=== PATIENT | female | born 1970 | race Caucasian/White ===

== ENCOUNTER 2017-10-20 19:36 | Inpatient (IN) | payer OTHER ==
[~2017-10-20] VITALS: Ht 165.1 cm; Wt 119.9 kg
[~2017-10-20 19:36] MED LIST: OMEP20ER PO
[2017-10-20 20:15] LABS: BASOPHILS ABSOLUTE AUTO 0.06 K/mm3 (0.00-0.23); BASOPHILS PERCENT AUTO 1 % (0-2); EOSINOPHILS ABSOLUTE AUTO 0.04 K/mm3 (0.00-0.68); EOSINOPHILS PERCENT AUTO 0 % (0-6); Hemoglobin 14.5 g/dL (11.5-16.0); IMMATURE GRAN ABSOLUTE AUTO 0.04 K/mm3 (0.00-0.10); IMMATURE GRAN PERCENT AUTO 0 % (0-1); LYMPHOCYTES ABSOLUTE AUTO 2.58 K/mm3 (0.84-5.20); LYMPHOCYTES PERCENT AUTO 28 % (21-46); MONOCYTES PERCENT AUTO 7 % (4-13); Mean Corpuscular HGB 30.3 pg (26.0-34.0); Mean Corpuscular HGB Conc 34.5 g/dL (31.5-36.5); Mean Corpuscular Volume 88 fL (80-100); Mean Platelet Volume 12.6 fL (9.1-12.4); NEUTROPHILS ABSOLUTE AUTO 5.77 K/mm3 (1.96-9.15); NEUTROPHILS PERCENT AUTO 64 % (41-73); Platelet Count 146 K/mm3 (150-400); RDW Coefficient Variation 12.8 % (11.7-14.2); Red Blood Cell Count 4.79 M/mm3 (3.80-5.20); White Blood Cell Count 9.09 K/mm3 (4.00-11.30)
[2017-10-20 20:33] LABS: Alanine Aminotransfer (ALT/SGP 131 U/L (12-78); Albumin, Blood 3.5 g/dL (3.4-5.0); Albumin/Globulin Ratio 0.9 (0.8-1.8); Alk Phos 273 U/L (50-136); Anion Gap 4 mmol/L (6-16); Aspartate Aminotrans (AST/SGOT 97 U/L (12-37); Blood Urea Nitrogen 8 mg/dL (8-24); CO2, Blood 29 mmol/L (21-32); Calcium, Blood 8.5 mg/dL (8.5-10.1); Chloride, Blood 105 mmol/L (98-108); Creatinine, Blood 0.67 mg/dL (0.40-1.00); Globulin, Blood 4.1 g/dL (2.2-4.0); Glomerular Filtration Rate >60 (60-); Glucose, Blood 180 mg/dL (70-99); Potassium, Blood 3.7 mmol/L (3.5-5.5); Sodium, Blood 138 mmol/L (136-145); Total Protein, Blood 7.6 g/dL (6.4-8.2)
[2017-10-21 00:13] LABS: Source, Urine Clean Catch
[2017-10-21 00:14] LABS: Bilirubin, Urine Neg (Neg); Blood, Urine Neg (Neg); Glucose Qualitative, Urine Neg (Neg); Ketones, Urine 2+ (Neg); Leukocyte Esterase, Urine Neg (Neg); Nitrite, Urine Neg (Neg); Protein, Urine 1+ (Neg); Specific Gravity, Urine 1.015 (1.003-1.022); Urobilinogen, Urine 2+ (Normal)
[2017-10-21 00:21] LABS: Appearance, Urine Hazy (Clear); Color, Urine Amber (P-Yellow)
[2017-10-21 00:22] LABS: Amorphous Mod (0-Heavy); Bacteria Few /hpf; Mucus Light (0-Heavy); Red Blood Cells, Urine Not Seen /hpf (0-2); Squamous Epithelial Cells Mod /hpf (Few); White Blood Cells, Urine Not Seen /hpf (0-5)
[2017-10-21] MEDS ORDERED: Milk Of Ma400 MG/5 M PO (01:12)
[2017-10-21] MEDS ORDERED: CITRATE OF MAG296 ML PO (01:14)
[2017-10-21] MEDS ORDERED: DOCU100 PO (01:16)
[2017-10-21 05:16] LABS: BASOPHILS ABSOLUTE AUTO 0.04 K/mm3 (0.00-0.23); BASOPHILS PERCENT AUTO 1 % (0-2); EOSINOPHILS ABSOLUTE AUTO 0.01 K/mm3 (0.00-0.68); EOSINOPHILS PERCENT AUTO 0 % (0-6); Hematocrit 40.1 % (33.0-51.0); Hemoglobin 13.6 g/dL (11.5-16.0); Mean Corpuscular HGB 30.2 pg (26.0-34.0); Mean Corpuscular HGB Conc 33.9 g/dL (31.5-36.5); Mean Corpuscular Volume 89 fL (80-100); Mean Platelet Volume 11.9 fL (9.1-12.4); Platelet Count 118 K/mm3 (150-400); RDW Coefficient Variation 12.9 % (11.7-14.2); RDW Standard Deviation 41.7 fL (35.1-46.3); Red Blood Cell Count 4.51 M/mm3 (3.80-5.20); White Blood Cell Count 8.17 K/mm3 (4.00-11.30)
[2017-10-21 05:27] LABS: IMMATURE GRAN ABSOLUTE AUTO 0.05 K/mm3 (0.00-0.10); IMMATURE GRAN PERCENT AUTO 1 % (0-1); LYMPHOCYTES PERCENT AUTO 28 % (21-46); MONOCYTES ABSOLUTE AUTO 0.63 K/mm3 (0.16-1.47); MONOCYTES PERCENT AUTO 8 % (4-13); NEUTROPHILS ABSOLUTE AUTO 5.14 K/mm3 (1.96-9.15); NEUTROPHILS PERCENT AUTO 63 % (41-73)
[2017-10-21 05:42] LABS: Alanine Aminotransfer (ALT/SGP 106 U/L (12-78); Albumin/Globulin Ratio 0.8 (0.8-1.8); Alk Phos 223 U/L (50-136); Anion Gap 8 mmol/L (6-16); Aspartate Aminotrans (AST/SGOT 54 U/L (12-37); Bilirubin, Total 0.8 mg/dL (0.1-1.0); Blood Urea Nitrogen 7 mg/dL (8-24); Bun/Creatinine Ratio 10.7 (12.0-20.0); CO2, Blood 31 mmol/L (21-32); Calcium, Blood 8.2 mg/dL (8.5-10.1); Chloride, Blood 103 mmol/L (98-108); Creatinine, Blood 0.66 mg/dL (0.40-1.00); Globulin, Blood 3.9 g/dL (2.2-4.0); Glomerular Filtration Rate >60 (60-); Glucose, Blood 151 mg/dL (70-99); Potassium, Blood 3.5 mmol/L (3.5-5.5); Sodium, Blood 142 mmol/L (136-145); Total Protein, Blood 6.9 g/dL (6.4-8.2)
[2017-10-22 14:50] LABS: Alanine Aminotransfer (ALT/SGP 67 U/L (12-78); Albumin, Blood 2.9 g/dL (3.4-5.0); Albumin/Globulin Ratio 0.8 (0.8-1.8); Alk Phos 193 U/L (50-136); Anion Gap 6 mmol/L (6-16); Aspartate Aminotrans (AST/SGOT 35 U/L (12-37); Bilirubin, Total 0.7 mg/dL (0.1-1.0); Blood Urea Nitrogen 15 mg/dL (8-24); CO2, Blood 30 mmol/L (21-32); Chloride, Blood 105 mmol/L (98-108); Creatinine, Blood 0.75 mg/dL (0.40-1.00); Globulin, Blood 3.7 g/dL (2.2-4.0); Glomerular Filtration Rate >60 (60-); Glucose, Blood 141 mg/dL (70-99); Sodium, Blood 141 mmol/L (136-145); Total Protein, Blood 6.6 g/dL (6.4-8.2)
== END 2017-10-23 22:14 | disposition short-term general hospital (02) | DRG 395 ==
LOC: ER 19:36 → MEDS 10-21 00:21
PROVIDERS: Emergency Medicine; Internal Medicine; Internal Medicine Gastroenterology; Physician Assistant
PROC: 0DJDXZZ Inspection of Lower Intestinal Tract, External Approach (ICD-10-PCS; principal; 2017-10-23 07:30)
DX: K63.89 Other specified diseases of intestine (principal); K59.00 Constipation, unspecified; E86.0 Dehydration; R59.1 Generalized enlarged lymph nodes; K56.609 Unspecified intestinal obstruction, unspecified as to partial versus complete obstruction; Z53.8 Procedure and treatment not carried out for other reasons
CPT/HCPCS: 36415; 36416; 74176; 74177; 80053; 81001; 82947; 83605; 83690; 85025; 93005; 93010; 96361; 96374; 96375; 99285; J0360; J1170; J1650; J2250; J2405; J3010; J7030; J7042; J7120; Q9967

== ENCOUNTER 2023-01-07 03:43 | Emergency (ER) | payer OTHER ==
[~2023-01-07] VITALS: Ht 165.1 cm; Wt 102.1 kg
[~2023-01-07 03:43] MED LIST changes: +CITRATE OF MAG296 ML PO; +DOCU100 PO; +Milk Of Ma400 MG/5 M PO
[2023-01-07 04:05] LABS: Source, Urine Clean Catch
[2023-01-07 04:08] LABS: Appearance, Urine Hazy (Clear); Bilirubin, Urine Neg (Neg); Blood, Urine 4+ (Neg); Color, Urine Yellow (P-Yellow); Glucose Qualitative, Urine 4+ (Neg); Ketones, Urine 2+ (Neg); Leukocyte Esterase, Urine 2+ (Neg); Nitrite, Urine Neg (Neg); Protein, Urine 2+ (Neg); Urobilinogen, Urine NORM (Normal)
[2023-01-07 04:18] LABS: Bacteria Mod /hpf; Squamous Epithelial Cells Not Seen /hpf (Few); White Blood Cells, Urine 25-50 /hpf (0-5)
[2023-01-07] MEDS ORDERED: SULTRIDS PO (05:34)
[2023-01-07 06:18] VITALS: BP 152/96
== END 2023-01-07 06:03 | disposition home or self-care (01) ==
LOC: ER 03:43
PROVIDERS: Student in an Organized Health Care Education/Training Program
DX: N39.0 Urinary tract infection, site not specified (principal)
CPT/HCPCS: 81001; 87077; 87086; 87147; 87186; 99283; A9270

== ENCOUNTER → 2023-04-15 | Outpatient (CLI) | payer OTHER ==
[~2023-04-15] MED LIST changes: +SULTRIDS PO
[2023-04-15 08:02] LABS: Source, Urine Clean Catch
[2023-04-15 13:43] LABS: Appearance, Urine Cloudy (Clear); Bilirubin, Urine Neg (Neg); Blood, Urine 2+ (Neg); Color, Urine Yellow (P-Yellow); Glucose Qualitative, Urine 4+ (Neg); Ketones, Urine Neg (Neg); Leukocyte Esterase, Urine 2+ (Neg); Nitrite, Urine Neg (Neg); Protein, Urine 2+ (Neg); Specific Gravity, Urine 1.025 (1.003-1.022); Urobilinogen, Urine NORM (Normal)
[2023-04-15 14:01] LABS: Microalb/Creat Ratio UR, Rand 20.034 mg/g (0.000-30.000); Microalbumin, Random Urine 58.9 mg/L (0.000-20.000)
[2023-04-15 16:02] LABS: Amorphous Light (0-Heavy); Bacteria Many /hpf; Squamous Epithelial Cells Few /hpf (Few); Yeast/Fungi Urine Rare /hpf
== END ==
LOC: LAB 07:15 → LAB SHORT 07:15
PROVIDERS: Family Medicine
DX: N39.0 Urinary tract infection, site not specified (principal); E11.9 Type 2 diabetes mellitus without complications
CPT/HCPCS: 81001; 82043; 82570; 87077; 87086; 87186

== ENCOUNTER 2023-06-14 18:43 | Inpatient (IN) | payer OTHER ==
[2023-06-14] MEDS ORDERED: BUPR75 PO (19:21)
[2023-06-14] MEDS ORDERED: ATOR10 PO (19:22)
[2023-06-14] MEDS ORDERED: Lisinopril2.5 MG PO (19:23)
[2023-06-14 19:56] LABS: BASOPHILS ABSOLUTE AUTO 0.07 K/mm3 (0.00-0.23); BASOPHILS PERCENT AUTO 1 % (0-2); EOSINOPHILS ABSOLUTE AUTO 0.39 K/mm3 (0.00-0.68); EOSINOPHILS PERCENT AUTO 5 % (0-6); Hematocrit 44.6 % (33.0-51.0); Hemoglobin 15.4 g/dL (11.5-16.0); IMMATURE GRAN ABSOLUTE AUTO 0.04 K/mm3 (0.00-0.10); IMMATURE GRAN PERCENT AUTO 1 % (0-1); LYMPHOCYTES PERCENT AUTO 25 % (21-46); MONOCYTES ABSOLUTE AUTO 0.52 K/mm3 (0.16-1.47); MONOCYTES PERCENT AUTO 6 % (4-13); Mean Corpuscular HGB 29.4 pg (26.0-34.0); Mean Corpuscular HGB Conc 34.5 g/dL (31.5-36.5); Mean Corpuscular Volume 85 fL (80-100); Mean Platelet Volume 12.8 fL (9.1-12.4); NEUTROPHILS ABSOLUTE AUTO 5.21 K/mm3 (1.96-9.15); NEUTROPHILS PERCENT AUTO 63 % (41-73); Platelet Count 198 K/mm3 (150-400); RDW Coefficient Variation 12.5 % (11.7-14.2); RDW Standard Deviation 38.5 fL (35.1-46.3); Red Blood Cell Count 5.23 M/mm3 (3.80-5.20); White Blood Cell Count 8.33 K/mm3 (4.00-11.30)
[2023-06-14 20:08] LABS: Albumin, Blood 3.1 g/dL (3.4-5.0); Albumin/Globulin Ratio 0.9 (0.8-1.8); Bilirubin, Total 0.5 mg/dL (0.1-1.0); Bun/Creatinine Ratio 14.1 (12.0-20.0); Calcium, Blood 8.8 mg/dL (8.5-10.1); Creatinine, Blood 0.78 mg/dL (0.40-1.00); Globulin, Blood 3.6 g/dL (2.2-4.0); Potassium, Blood 3.8 mmol/L (3.5-5.5); Total Protein, Blood 6.7 g/dL (6.4-8.2)
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
[2023-06-15 00:17] VITALS: BP 155/84
--- NOTE | 2023-06-15 01:40 | NUR ---
CBG PT CBG IN ED 443, TAKEN ONCE ARRIVED TO MEDDICAL FLOOR AND IS CURRENTLY AT 303. PT HAS A DIAGNOSIS OF DM. HOWEVER SHE WAS TO BE TAKING METFORMIN AND GLIPIZIDE AND STATES SHE DOES NOT. PT DOES NOT WANT INSULIN AT THIS TIME. NOTIFIED BASE CLOTH INSPECTOR.
[2023-06-15 04:06] VITALS: BP 128/81
--- NOTE | 2023-06-15 04:24 | NUR ---
TELEMETRY PT HAD AN 11 BEAT RUN OF VTACH. ASSESSED PT WHO WAS SLEEPING WITH SYMPTOMS. TELE UPLOADING STRIP TO CHART. NOTIFIED CHARGE. CURRENTLY SR @ 93. WILL CONTINUE TO MONITOR.
--- NOTE | 2023-06-15 05:35 | NUR ---
SHIFT SUMMARY PT A&O X4, CALM AND COOPERATIVE WITH CARE. PT EXPERIENCING LEFT SIDED WEAKNESS ESPECIALLY IN THE LEGS. ALSO DESCRIBES NUMBNESS AND TINGLING. CBG 317 @ 0400, MEDICATED PER ORDER. PT CURRENTLY HAS A PUREWICK IN PLACE DRAINING DARK COLORED URINE. PT/OT ORDERED. TELEMETRY: SR @ 93. CALL LIGHT WITHIN REACH WITH BED IN LOWEST POSITION. CALLS APPROPRIATELY.
[2023-06-15 07:20] VITALS: BP 166/97
[2023-06-15 15:18] VITALS: BP 165/95
--- NOTE | 2023-06-15 17:01 | NUR ---
SHIFT SUMMARY PT WITH S.O. AT BEDSIDE MOST OF THE DAY. HAD MRI COMPLETED THIS AFTERNOON. ASSISTED UP TO BSC FOR BM USING GAIT BELT AND FWW. HAVING TROUBLE PICKING UP HER L LEG WITH MOVMENT BUT HAS EQUAL STRENGTH AND ABLE TO HOLD HERSELF UP WITH BOTH LEGS. USING A PUREWICK DUE TO URINARY URGENCY.
[2023-06-15 20:39] VITALS: BP 168/81
--- NOTE | 2023-06-16 04:41 | NUR ---
Shift Summary Pt experiencing L leg weakness and tingling in her hands. No other deficits noted, strength appears equal in her arms/hands and both eyes are PERRLA. CBG was 337 at 2035, medicated per EMAR sliding scale. Head MRI completed yesterday, pt waiting to hear results from MD. Bernard in place draining tea colored urine. Pt remained in bed t/o the shift. No c/o pain or nausea. Pt hypertensive today around 167/95, spoke to hospitalist who gave no new orders because permissive hypertension may be desirable. Pt AOx4 and slept well through most of the night.
[2023-06-16 05:51] VITALS: BP 138/84
[2023-06-16 05:59] LABS: BASOPHILS ABSOLUTE AUTO 0.05 K/mm3 (0.00-0.23); BASOPHILS PERCENT AUTO 1 % (0-2); EOSINOPHILS ABSOLUTE AUTO 0.24 K/mm3 (0.00-0.68); EOSINOPHILS PERCENT AUTO 3 % (0-6); Hematocrit 43.8 % (33.0-51.0); IMMATURE GRAN ABSOLUTE AUTO 0.03 K/mm3 (0.00-0.10); IMMATURE GRAN PERCENT AUTO 0 % (0-1); LYMPHOCYTES ABSOLUTE AUTO 1.77 K/mm3 (0.84-5.20); LYMPHOCYTES PERCENT AUTO 22 % (21-46); MONOCYTES ABSOLUTE AUTO 0.55 K/mm3 (0.16-1.47); MONOCYTES PERCENT AUTO 7 % (4-13); Mean Corpuscular HGB 29.1 pg (26.0-34.0); Mean Corpuscular HGB Conc 34.2 g/dL (31.5-36.5); Mean Corpuscular Volume 85 fL (80-100); Mean Platelet Volume 12.2 fL (9.1-12.4); NEUTROPHILS ABSOLUTE AUTO 5.58 K/mm3 (1.96-9.15); NEUTROPHILS PERCENT AUTO 68 % (41-73); Platelet Count 177 K/mm3 (150-400); RDW Coefficient Variation 12.4 % (11.7-14.2); Red Blood Cell Count 5.15 M/mm3 (3.80-5.20); White Blood Cell Count 8.22 K/mm3 (4.00-11.30)
[2023-06-16 06:15] LABS: Albumin, Blood 2.8 g/dL (3.4-5.0); Anion Gap 3 mmol/L (6-16); Blood Urea Nitrogen 10 mg/dL (8-24); CO2, Blood 29 mmol/L (21-32); Calcium, Blood 8.5 mg/dL (8.5-10.1); Chloride, Blood 108 mmol/L (98-108); Creatinine, Blood 0.56 mg/dL (0.40-1.00); Glomerular Filtration Rate 108 (60-); Glucose, Blood 262 mg/dL (70-99); Phosphorus, Blood 2.9 mg/dL (2.5-4.9); Potassium, Blood 3.6 mmol/L (3.5-5.5); Sodium, Blood 140 mmol/L (136-145)
[2023-06-16 07:58] VITALS: BP 159/89
[2023-06-16 15:37] VITALS: BP 146/92
[2023-06-16] MEDS ORDERED: ASPI81CH PO (18:37)
[2023-06-16] MEDS ORDERED: CLOP75 PO (18:37)
--- NOTE | 2023-06-16 18:45 | NUR ---
SHIFT SUMMARY PT UP FOR MEALS. USING A FWW AND GAIT BELT ABLE TO WALK WITH CUES TO PUT HER FOOT FORWARD WHEN WALKING HEEL TOE. WITH CONCENTRATION SHE REMEMBERS. AGREEABLE WITH CARE GIVEN AND ENJOYS BEING UP MOVING AROUND WITH HELP. S.O. WITH PT MOST OF THE DAY. REMINDED PT SHE IS TO CALL FOR HELP AND NOT GET UP BY HERSELF. SPOKE WITH DR. LEE ABOUT IMAGING RESULTS BEING IN AND DISCHARGE ORDERS HAVE BEEN PLACED.
== END 2023-06-16 20:00 | disposition home or self-care (01) | DRG 65 ==
LOC: ER 18:43 → MEDS 18:44
PROVIDERS: Emergency Medicine; Family Medicine; ADMIT Internal Medicine
DX: I63.81 Other cerebral infarction due to occlusion or stenosis of small artery (principal); G81.94 Hemiplegia, unspecified affecting left nondominant side; N39.0 Urinary tract infection, site not specified; E11.65 Type 2 diabetes mellitus with hyperglycemia; I10 Essential (primary) hypertension; I66.22 Occlusion and stenosis of left posterior cerebral artery; E78.5 Hyperlipidemia, unspecified; F41.9 Anxiety disorder, unspecified; Z85.72 Personal history of non-Hodgkin lymphomas; Z28.21 Immunization not carried out because of patient refusal
CPT/HCPCS: 36415; 70450; 70496; 70498; 70551; 80053; 80069; 82947; 83036; 84443; 85025; 93005; 93010; 93306; 96372; 97110; 97112; 97116; 97162; 97165; 99285-25; A9270; G0378; J1644; J1815; Q9967

== ENCOUNTER → 2024-04-13 | Outpatient (CLI) | payer OTHER ==
[~2024-04-13] MED LIST changes: +ASPI81CH PO; +ATOR10 PO; +BUPR75 PO; +CLOP75 PO; +Lisinopril2.5 MG PO
[2024-04-13 11:58] LABS: Source, Urine Clean Catch
[2024-04-13 18:05] LABS: Appearance, Urine Clear (Clear); Bilirubin, Urine Neg (Neg); Blood, Urine Neg (Neg); Color, Urine Yellow (P-Yellow); Glucose Qualitative, Urine 4+ (Neg); Ketones, Urine Neg (Neg); Leukocyte Esterase, Urine 2+ (Neg); Nitrite, Urine Neg (Neg); Protein, Urine 2+ (Neg); Specific Gravity, Urine 1.015 (1.003-1.022); Urobilinogen, Urine NORM (Normal)
[2024-04-13 18:18] LABS: Bacteria Mod /hpf; Red Blood Cells, Urine 0-2 /hpf (0-2); Squamous Epithelial Cells Few /hpf (Few)
== END ==
LOC: LAB SHORT 11:54 → LAB 11:54
PROVIDERS: Family Medicine
DX: N39.0 Urinary tract infection, site not specified (principal)
CPT/HCPCS: 81001; 87086; 87147

== ENCOUNTER → 2025-03-28 | Outpatient (CLI) | payer OTHER | END | disposition home or self-care (01) | LOC: LAB 16:45 → LAB SHORT 16:45 | DX: R39.15 Urgency of urination (principal) | CPT/HCPCS: 87077; 87086; 87186 ==